=== PATIENT | male | born 1990 | race Caucasian/White ===

== ENCOUNTER 2016-08-26 00:08 | Emergency (ER) | payer OTHER ==
[~2016-08-26] VITALS: Ht 160 cm; Wt 57.2 kg
[2016-08-26 00:15] VITALS: BP 122/75; PULSE 64; RESP 16; TEMP 98.4; O2SAT 99
[2016-08-26 00:40] LABS: BILIRUBIN,URINE NEGATIVE (NEGATIVE); BLOOD, URINE NEGATIVE (NEGATIVE); CLARITY/URINE CLEAR (CLEAR); COLOR,URINE YELLOW (YELLOW); GLUCOSE,URINE NEGATIVE (NEGATIVE); KETONES,URINE NEGATIVE (NEGATIVE); LEUKOCYTE ESTERASE ,URINE NEGATIVE (NEGATIVE); NITRITE, URINE NEGATIVE (NEGATIVE); PROTEIN URINE NEGATIVE (NEGATIVE); UROBILINOGEN,URINE 0.2 (0.2-1.0)
[2016-08-26 01:08] VITALS: BP 120/71; PULSE 66; RESP 16; TEMP 98.3; O2SAT 98
== END 2016-08-26 01:08 | disposition home or self-care (01) ==
LOC: SED 00:08
DX: S39.012A Strain of muscle, fascia and tendon of lower back, initial encounter (principal); J45.909 Unspecified asthma, uncomplicated; X58.XXXA Exposure to other specified factors, initial encounter; Y93.89 Activity, other specified; Y92.89 Other specified places as the place of occurrence of the external cause; Y99.8 Other external cause status
CPT/HCPCS: 81003; 99283